=== PATIENT | female | born 1990 ===

== ENCOUNTER 2024-11-01 14:30 | Inpatient (IN) | payer OTHER ==
[~2024-11-01] VITALS: Ht 157.5 cm; Wt 76.7 kg
[2024-11-07 08:30] VITALS: BP 127/85
[2024-11-07] MEDS ORDERED: RINGERS SOLUTION,LACTATED 1,000 ML IV SCH (09:15)
[2024-11-07] MEDS ORDERED: PRENATAL TABLE1 EAC1 PO (09:20)
[2024-11-07 09:40] LABS: HEMATOCRIT 37.4 % (36.0-45.00); HEMOGLOBIN 12.8 g/dL (12.0-15.00); MEAN CELL VOLUME 87.1 fL (80.00-100.00); MEAN CORPUSCULAR HEMOGLOBIN 29.8 pg (27.00-32.0); MEAN CORPUSCULAR HGB CONC 34.2 g/dl (32.0-36.0); PLATELET COUNT 232 K/uL (150-450); RED BLOOD COUNT 4.29 M/uL (4.00-6.00); RED CELL DISTRIBUTION WIDTH 13.7 % (11.5-14.5)
[2024-11-07 09:47] LABS: URINE APPEARANCE Cloudy; URINE BILIRRUBIN Negative (NEGATIVE); URINE BLOOD Large; URINE COLOR Yellow; URINE GLUCOSE Negative (NEGATIVE); URINE KETONE Trace (NEGATIVE); URINE LEUKOCYTE Trace; URINE NITRATE Negative; URINE PROTEIN 30 (NEGATIVE); URINE UROBILINOGEN 0.2 E.U./dl
[2024-11-07 09:50] LABS: URINE BACTERIA 2876.3 uL (0.0-1933); URINE EPITHELIAL CELLS 59.2 uL (0.0-38.8); URINE RBC 961.6 uL (0.0-20.8); URINE WBC 40.5 uL (0.0-23.2)
[2024-11-07 10:01] LABS: URINE CAST 0.14 uL (0.0-1.40)
[2024-11-07 10:03] LABS: URINE CRYSTALS FEW /HPF
[2024-11-07 10:04] LABS: INR < 0.93; PARTIAL THROMBOPLASTIN TIME 27.5 SECONDS (22.0-34.0)
[2024-11-07 10:06] LABS: ALBUMIN 3.1 gm/dL (3.4-5.0); BILIRUBIN TOTAL 0.27 mg/dL (0.3-1.2); CALCIUM 9.1 mg/dL (8.5-10.1); CREATININE SERUM 0.5 mg/dL (0.55-1.02); GFR 142.09; GLOBULINA 3.3 G/DL (2.4-3.5); POTASSIUM 4.46 mEq/L (3.5-5.1); TOTAL PROTEIN 6.4 gm/dL (6.4-8.2)
[2024-11-07 11:10] VITALS: BP 113/72
[2024-11-07 15:23] VITALS: BP 127/83
[2024-11-07 19:17] VITALS: BP 124/75
[2024-11-07] MEDS ORDERED: AMPICILLIN SODIUM 2,000 MG in 0.9 % SODIUM CHLORIDE 100 ML IV SCH (21:41)
[2024-11-07] MEDS ORDERED: MORPHINE SULFATE 4 MG/ML VIAL IV STA (21:42)
[2024-11-07 23:26] VITALS: BP 130/66
[2024-11-08] VITALS (8 sets, daily range): BP systolic 113–156; BP diastolic 57–77
[2024-11-08] MEDS ORDERED: DOCUSATE SODIUM 100MG CAP PO SCH (02:13)
[2024-11-08] MEDS ORDERED: OXYTOCIN 1,000 ML IV SCH (02:15)
[2024-11-08] MEDS ORDERED: CHLORHEXIDINE GLUCONATE 120 ML BOTTLE TP SCH (02:15)
[2024-11-08] MEDS ORDERED: ERYTHROMYCIN BASE OPHT 1GM EACH TUBE OP ONE (03:30)
[2024-11-08] MEDS ORDERED: LIDOCAINE HCL 1% 20 ML VIAL IJ ONE (03:30)
[2024-11-08] MEDS ORDERED: OxyCODONE HCL 5 MG TABLET (ROXICODONE) PO SCH (04:00)
[2024-11-08] MEDS ORDERED: KETOROLAC TROMETHAMINE 10 MG TABLET PO SCH (06:00)
[2024-11-09] VITALS: BP 122/80
[2024-11-09 08:45] VITALS: BP 104/68
[2024-11-09 15:42] VITALS: BP 104/69
[2024-11-10 01:31] VITALS: BP 110/69
[2024-11-10 08:50] VITALS: BP 125/81
== END 2024-11-10 17:32 | disposition home or self-care (01) | DRG 807 ==
LOC: LDR 11-07 08:43 → OB/GYN 11-07 08:43 → LDR 11-13 14:30
PROVIDERS: Obstetrics & Gynecology Maternal & Fetal Medicine; ADMIT Obstetrics & Gynecology; ATTEND Obstetrics & Gynecology
PROC: 4A1HXCZ Monitoring of Products of Conception, Cardiac Rate, External Approach (ICD-10-PCS; 2024-11-07)
PROC: 10E0XZZ Delivery of Products of Conception, External Approach (ICD-10-PCS; principal; 2024-11-08)
PROC: 0KQM0ZZ Repair Perineum Muscle, Open Approach (ICD-10-PCS; 2024-11-08)
PROC: 0W8NXZZ Division of Female Perineum, External Approach (ICD-10-PCS; 2024-11-08)
DX: O70.1 Second degree perineal laceration during delivery (principal); Z37.0 Single live birth; Z3A.38 38 weeks gestation of pregnancy